=== PATIENT | female | born 1975 | race African-American/Black ===

== ENCOUNTER 2016-08-24 10:05 | Emergency (ER) | payer MEDICAID ==
[~2016-08-24] VITALS: Ht 172.7 cm; Wt 82.0 kg
[~2016-08-24 10:05] MED LIST: LEVO500T89; METR500T; NITR100C2; cipro; hydrocodone
[2016-08-24 11:02] VITALS: BP 118/50
== END 2016-08-24 15:11 | disposition home or self-care (01) ==
LOC: ER 13:44
DX: M54.5 Low back pain (principal); M62.830 Muscle spasm of back; J45.909 Unspecified asthma, uncomplicated; F12.10 Cannabis abuse, uncomplicated; Z90.49 Acquired absence of other specified parts of digestive tract
CPT/HCPCS: 99283